=== PATIENT | female | born 2000 | race Two or more races ===

== ENCOUNTER 2021-11-19 17:17 | Emergency (ER) | payer BC ==
[~2021-11-19] VITALS: Ht 170.2 cm; Wt 77.0 kg
[2021-11-19 17:28] VITALS: BP 122/87
[2021-11-19] MEDS ORDERED: ACETAMINOPHEN 325MG TABLET PO PRN (20:30)
[2021-11-19 21:02] LABS: BASOPHILS % 0.5 % (0.0-2.0); EOSINOPHILS % 2.3 % (0.0-5.0); HEMATOCRIT. 39.3 % (36.0-48.0); HEMOGLOBIN. 12.4 g/dL (12.0-16.0); LYMPHOCYTES % 35.1 % (20.0-50.0); MEAN CORPUSCULAR HEMOGLOBIN 25.1 pg (28.0-32.0); MEAN CORPUSCULAR VOLUME 79.2 fL (81.0-99.0); MEAN PLATELET VOLUME 8.3 fl (7.4-10.4); MONOCYTES % 4.8 % (2.0-8.0); NEUTROPHILS % 57.3 % (40.0-76.0); PLATELET 252 x1000/uL (130-400); RED BLOOD CELL COUNT 4.96 mill/uL (4.2-5.4); RED CELL DISTRIBUTION WIDTH 17.8 % (11.6-14.6)
[2021-11-19 21:04] LABS: CHLORIDE 107 mEq/L (98-107)
[2021-11-19 21:11] LABS: HCG SCREEN NEGATIVE
[2021-11-19] MEDS ORDERED: IBUP-2028 MT (23:17)
== END 2021-11-19 23:39 | disposition home or self-care (01) ==
LOC: ER 17:17
DX: N93.8 Other specified abnormal uterine and vaginal bleeding (principal); Z91.013 Allergy to seafood
CPT/HCPCS: 36415; 76856; 80053; 81025; 84443; 84703; 85025; 86850; 86900; 99284